=== PATIENT | female | born 1970 | race Caucasian/White ===

== ENCOUNTER 2019-10-23 09:32 | Observation (INO) ==
[2019-10-23] MEDS ORDERED: ACETAMINOPHEN 325 MG TABLET PO PRN (10:36)
[2019-10-23] MEDS ORDERED: MELATONIN 3 MG TABLET PO PRN (10:36)
[2019-10-23] MEDS ORDERED: POLYETHYLENE GLYCOL 3350 17 GM PACKET PO PRN (10:36)
[2019-10-23] MEDS ORDERED: HYDROmorphone 0.5 MG/0.5 ML SYRINGE IV PRN (10:36)
[2019-10-23] MEDS ORDERED: MAGNESIUM SULFATE 2 GM/50 ML BAG IV PRN (10:36)
[2019-10-23] MEDS ORDERED: BISACODYL 10 MG SUPP.RECT PR PRN (10:36)
[2019-10-23] MEDS ORDERED: ONDANSETRON 4 MG ODT TABLET SL PRN (10:36)
[2019-10-23] MEDS ORDERED: ACETAMINOPHEN 650 MG/65 ML BOTTLE IV PRN (10:36)
[2019-10-23] MEDS ORDERED: POTASSIUM CHLORIDE 20 MEQ PACKET PO PRN (10:36)
--- NOTE | 2019-10-23 10:39 | Internal Med History&Physical ---
HPI History of Present Illness Patient information: Note initiated : 10/23/19 at 10:38 am Service Date, if different from initiated Date: [] Patient: Caridad Rowe a 49 y/o F admitted on 10/23/19 for Intractable nausea/vomiting, ischemic colitis. Chief Complaint: [] History of present illness: Ms. Rowe is a 49 year old F with a history of hypertension/migraine who presented to the ER yesterday with symptoms of lightheadedness/abdominal pain/bloody bowels. Initial blood pressures were found to be 80/50. She is noted to have significant amount of bloody bowels over the course of few hours and was diagnosed with ischemic colitis. After initial management ER patient clinically improved. GI was consulted advised discharge with follow-up outpatient in the clinic. Repeat hemoglobin at 13.5 following crystalloid bolus. Patient was discharged with advice to follow-up with GI. Today during the evaluation at GI clinic she was noted to be extremely nauseous and was unable to undergo a colon prep for further evaluation of ischemic colitis. Subsequently hospitalist service was requested for admission to facilitate management of symptoms and colon prep and subsequent colonoscopy. At the time of my evaluation patient is accompanied with family member. She is in significant distress due to her migraine flare. She endorses to photophobia. She endorses that her symptoms are usually controlled with Excedrin/acetaminophen and NSAIDs and has used Imitrex in the past. She however denies significant abdominal pain or associated shaking chills, fever, bloody stool. She continues to be nauseous limiting GoLYTELY prep intake. She denies fever, chills, sick contacts. Review of systems 10 point review system was attempted and is negative except for ones discussed above PFSH PFSH All Active Problems (Updated 10/23/19 @ 11:17 by Momo Edwards DO) History of anemia (Chronic) GERD (gastroesophageal reflux disease) (Chronic) Headache, chronic migraine without aura (Chronic) Hypertension, essential (Chronic) Abdominal pain (Acute) GI bleed (Acute) Syncope (Acute) Medical History (Updated 10/23/19 @ 11:17 by Momo Edwards DO) GERD (gastroesophageal reflux disease) (Chronic) GI bleed (Acute) Headache, chronic migraine without aura (Chronic) vs chronic headache syndrome History of anemia (Chronic) Hypertension, essential (Chronic) Syncope (Acute) Surgical History (Updated 10/23/19 @ 11:19 by Momo Edwards DO) History of breast surgery (Acute) For cysts History of hysterectomy (Acute) History of ovarian cystectomy (Acute) Social History smoking status: Never smoker alcohol intake frequency: does not drink substance use type: does not use MEDS/ALLERGIES Home Medications and Allergies Home Medications Medication Instructions Recorded Confirmed Type cephalexin 250 mg capsule 250 mg PO QDAY cap 10/22/19 10/23/19 History losartan 100 1 tab PO QDAY 10/22/19 10/23/19 History mg-hydrochlorothiazide 25 mg tablet omeprazole 20 mg capsule,delayed 20 mg PO QDAY 10/22/19 10/23/19 History release promethazine 25 mg [place] Q6H PRN #12 each 10/22/19 10/23/19 Rx rosuvastatin 10 mg tablet 10 mg PO QDAY 10/22/19 10/23/19 History Allergies Allergy/AdvReac Type Severity Reaction Status Date / Time No Known Drug Allergies Allergy Verified 10/22/19 14:12 EXAM Constitutional Vitals: Temp 97.3 F 10/23/19 09:57 Very anxious, complains of photophobia Hypertensive Head normocephalic Oral cavity moist No ear nose discharge Eye movement symmetrical Neck supple no lymphadenopathy S1-S2 regular Nonlabored breathing Nondistended but tender abdomen on palpation Lower extremity no cyanosis clubbing or joint swelling Skin no suspicious lesion Psych anxious but alert cooperative Neuro normal higher function A/P Narrative A/P Narrative: * Acute ischemic colitis. Currently nontoxic. White count 10.8. Undergoing colon prep. GI on board. * Abdominal pain initiate as needed opioids * Acute migraine start Imitrex/acetaminophen and as needed opioids * History of hypertension restart home medications * History of hyperlipidemia start home dose statin * GERD continue PPI * Prophylaxis early ambulation Plan * Observation admission * GI consult * Migraine management * Colonoscopy per GI * Abdominal imaging if worsening symptoms or toxemia * Pre-existing medical condition management home meds Time Spent With Patient Time: Total time spent is greater than 50% in coordination of care (as documented) at patient's floor/unit and/or counseling patient:
[2019-10-23] MEDS ORDERED: ONDANSETRON 4 MG/2 ML VIAL IV PRN (10:58)
[2019-10-23] MEDS ORDERED: PROMETHAZINE 25 MG/ML VIAL IV PRN (10:59)
[2019-10-23] MEDS ORDERED: MAGNESIUM CITRATE 300 ML ORAL.SOL PO SCH (11:00)
[2019-10-23] MEDS ORDERED: PEG 3350/NA SULF,BICARB,CL/KCL 4,000 ML ORAL.SOL PO SCH (11:00)
[2019-10-23] MEDS ORDERED: BISACODYL 5 MG TABLET PO SCH (11:00)
[2019-10-23] MEDS ORDERED: SENNOSIDES 8.8 MG/5 ML ML PT SCH (11:00)
[2019-10-23] MEDS ORDERED: BETHANECHOL 10 MG TABLET PO SCH (11:00)
[2019-10-23] MEDS ORDERED: SUMAtriptan SUCCINATE 6 MG/0.5 ML VIAL SQ ONE (11:55)
[2019-10-23 12:01] LABS: Basophils # (Auto) 0.03 K/mcL (0.00-0.30); Basophils % (Auto) 0.3 % (0.0-2.0); Eosinophils # (Auto) 0.04 K/mcL (0.00-0.70); Eosinophils % (Auto) 0.4 % (0.0-7.0); Granulocytes % (Auto) 80.8 % (38.0-78.0); Hematocrit 44.1 % (34.1-44.9); Hemoglobin 14.6 g/dL (11.2-15.7); Lymphocytes # (Auto) 1.33 K/mcL (1.50-4.80); Lymphocytes % (Auto) 12.3 % (15.5-49.0); Mean Cell Volume 89.3 fL (80.0-100.0); Mean Corpuscular HGB Conc 33.1 g/dL (31.0-36.0); Mean Platelet Volume 12.3 fL (7.4-10.4); Monocytes # (Auto) 0.67 K/mcL (0.10-0.90); Monocytes % (Auto) 6.2 % (1.0-12.0); Platelet Count 223 K/mcL (140-440); RBC 4.94 M/mcL (3.59-5.38); Red Cell Distribution Width 12.5 % (11.5-14.5); WBC 10.8 K/mcL (4.50-11.00)
[2019-10-23] MEDS: 0.9 % SODIUM CHLORIDE 1,000 ML IV SCH ×2 (12:13→22:48)
[2019-10-23 12:20] LABS: Bilirubin,Direct < 0.2 mg/dL (0.0-0.3); Chloride 99 mmol/L (96-108)
[2019-10-23 12:24] LABS: ALT/SGPT 27 U/l (0-40); AST/SGOT 21 U/l (0-37); Albumin 4.1 gm/dL (3.2-5.2); Albumin/Globulin Ratio 1.4 (1.0-2.3); Alkaline Phosphatase 99 U/L (39-117); Bilirubin,Total 0.4 mg/dL (0.0-1.0); Blood Urea Nitrogen 19 mg/dl (6-20); Carbon Dioxide 21 mmol/L (22-30); Glomerular Filtration Rate 85; Glucose 97 mg/dL (70-105); Lactate Dehydrogenase 204 U/L (94-250); Phosphorous 3.3 mg/dL (2.7-4.5); Triglycerides 59 mg/dl (<150); Uric Acid 4.1 mg/dL (2.5-8.0)
[2019-10-23] MEDS: 0.9 % SODIUM CHLORIDE 10 ML SYRINGE IV SCH ×2 (16:50→20:43)
[2019-10-23] MEDS: ONDANSETRON 4 MG/2 ML VIAL IV PRN (18:51)
[2019-10-23] MEDS: PROMETHAZINE 25 MG/ML VIAL IV PRN (19:56)
[2019-10-23] MEDS: DOCUSATE SODIUM 100 MG CAPSULE PO SCH (20:42)
[2019-10-23] MEDS ORDERED: SENNOSIDES/DOCUSATE SODIUM 1 TAB TABLET PO SCH (21:00)
[2019-10-24] MEDS: ONDANSETRON 4 MG/2 ML VIAL IV PRN (01:56)
[2019-10-24] MEDS: 0.9 % SODIUM CHLORIDE 10 ML SYRINGE IV SCH ×2 (05:02→12:01)
[2019-10-24] MEDS: 0.9 % SODIUM CHLORIDE 1,000 ML IV SCH (06:34)
[2019-10-24 07:03] LABS: Hematocrit 38.6 % (34.1-44.9); Hemoglobin 12.9 g/dL (11.2-15.7); Mean Cell Volume 88.1 fL (80.0-100.0); Mean Corpuscular HGB Conc 33.4 g/dL (31.0-36.0); Mean Platelet Volume 12.1 fL (7.4-10.4); Platelet Count 227 K/mcL (140-440); RBC 4.38 M/mcL (3.59-5.38); Red Cell Distribution Width 12.5 % (11.5-14.5); WBC 11.2 K/mcL (4.50-11.00)
[2019-10-24] MEDS: DOCUSATE SODIUM 100 MG CAPSULE PO SCH (07:07)
[2019-10-24 07:19] LABS: ALT/SGPT 27 U/l (0-40); AST/SGOT 21 U/l (0-37); Albumin 3.6 gm/dL (3.2-5.2); Albumin/Globulin Ratio 1.4 (1.0-2.3); Alkaline Phosphatase 85 U/L (39-117); Bilirubin,Direct < 0.2 mg/dL (0.0-0.3); Bilirubin,Total 0.4 mg/dL (0.0-1.0); Blood Urea Nitrogen 15 mg/dl (6-20); Calcium 9.1 mg/dl (8.6-10.4); Carbon Dioxide 24 mmol/L (22-30); Chloride 101 mmol/L (96-108); Globulin 2.6 gm/dL (2.2-3.7); Glomerular Filtration Rate 85; Glucose 88 mg/dL (70-105); Lactate Dehydrogenase 177 U/L (94-250); Phosphorous 2.4 mg/dL (2.7-4.5); Triglycerides 61 mg/dl (<150); Uric Acid 4.5 mg/dL (2.5-8.0)
[2019-10-24] MEDS ORDERED: KETAMINE HCL 50 MG/ML ML IV PRN (08:36)
[2019-10-24] MEDS ORDERED: MIDAZOLAM 2 MG/2 ML VIAL IV SCH (08:45)
[2019-10-24] MEDS ORDERED: PROPOFOL 200 MG/20 ML VIAL IV SCH (08:45)
[2019-10-24] MEDS ORDERED: MULTIVIT,THER IRON,CA,FA & MIN 1 TABLET PO SCH (09:00)
[2019-10-24] MEDS ORDERED: PROMETHAZINE 25 MG SUPP.RECT PR PRN (09:56)
[2019-10-24] MEDS ORDERED: FLU VACC QS2020-21(6MOS UP)/PF 60 MCG/0.5 ML SYRINGE IM ONE (10:00)
[2019-10-24] MEDS ORDERED: LOSARTAN 50 MG TABLET PO ONE (10:00)
[2019-10-24] MEDS ORDERED: HYDROCHLOROTHIAZIDE 25 MG TABLET PT ONE (10:02)
[2019-10-24] MEDS ORDERED: HYDROCHLOROTHIAZIDE 25 MG TABLET PO ONE (10:02)
[2019-10-24 10:39] LABS: Lymphocytes % 22 % (15-49); Monocytes % (Manual) 7 % (1-12); Platelet Estimate NORMAL (NORMAL); RBC Morphology NORMAL (NORMAL); Segmented Neutrophils % 71 % (38-78)
[2019-10-24] MEDS: PROMETHAZINE 25 MG/ML VIAL IV PRN (10:47)
--- NOTE | 2019-10-24 14:35 | Discharge Summary ---
Discharge Provider Provider Patient information: Note initiated : 10/24/19 at 2:33 pm Service Date, if different from initiated Date: [] Patient: Caridad Rowe a 49 y/o F admitted on 10/23/19 for Intractable nausea/vomiting, ischemic colitis. Chief Complaint: Discharge diagnosis * Acute ischemic colitis. Status post colonoscopy. GI recommends discharging with outpatient GI follow-up and advancing diet as tolerated now on liquid diet. Stable postop. Discharge instructions as below * Abdominal pain resolved * Acute migraine flare-clinically improved * History of hypertension continue home medications * History of hyperlipidemia continue home dose statin * GERD continue PPI Brief hospital course Ms. Rowe is a 49 year old F with a history of hypertension/migraine who presented to the ER yesterday with symptoms of lightheadedness/abdominal pain/bloody bowels. Initial blood pressures were found to be 80/50. She is noted to have significant amount of bloody bowels over the course of few hours and was diagnosed with ischemic colitis. After initial management ER patient clinically improved. GI was consulted advised discharge with follow-up outpatient in the clinic. Repeat hemoglobin at 13.5 following crystalloid bolus. Patient was discharged with advice to follow-up with GI. Today during the evaluation at GI clinic she was noted to be extremely nauseous and was unable to undergo a colon prep for further evaluation of ischemic colitis. Subsequently hospitalist service was requested for admission to facilitate management of symptoms and colon prep and subsequent colonoscopy. At the time of my evaluation patient is accompanied with family member. She is in significant distress due to her migraine flare. She endorses to photophobia. She endorses that her symptoms are usually controlled with Excedrin/acetaminophen and NSAIDs and has used Imitrex in the past. She however denies significant abdominal pain or associated shaking chills, fever, bloody stool. She continues to be nauseous limiting GoLYTELY prep intake. She denies fever, chills, sick contacts. 10/23-patient doing well post colonoscopy. GI recommends discharging on clear liquid advance as tolerated. Ischemic colitis noted on colonoscopy. Patient tolerated procedure well. Stable hemodynamics. Discharging advised to follow- up with GI clinic Charis Josue Date of admission: 10/23/19 09:57 Discharge date: 10/24/19 Primary care physician: James Galan Discharge Meds Discharge Medications Home Medications cephalexin 250 mg capsule 250 mg PO QDAY cap 10/22/19 [History Confirmed 10/23/19 Last Taken 10/22/19 06:30] losartan 100 mg-hydrochlorothiazide 25 mg tablet 1 tab PO QDAY 10/22/19 [History Confirmed 10/23/19 Last Taken 10/22/19 06:30] omeprazole 20 mg capsule,delayed release 20 mg PO QDAY 10/22/19 [History Co nfirmed 10/23/19 Last Taken 10/22/19 06:30] promethazine 25 mg MN Q6H PRN #12 each 10/22/19 [Rx Confirmed 10/23/19 Last Taken 10/22/19 23:00] rosuvastatin 10 mg tablet 10 mg PO QDAY 10/22/19 [History Confirmed 10/23/19 Last Taken 10/22/19 19:00] COURSE Hospital Course Hospital course: . Discharge diagnosis: . Time Spent with Patient Time attestation: Total time spent providing and/or coordinating discharge serv ices: EXAM Constitutional Vitals: Temp Pulse Resp BP Pulse Ox 98.9 F 73 16 139/87 91 10/24/19 13:44 10/24/19 13:44 10/24/19 13:44 10/24/19 13:44 10/24/19 13:44 Discharge Data Data Completed and Pending Labs on day of discharge: Labs from last 24 hours 10/24/19 10/24/19 05:35 05:35 WBC 11.2 H RBC 4.38 Hgb 12.9 Hct 38.6 MCV 88.1 MCH 29.5 MCHC 33.4 RDW 12.5 Plt Count 227 MPV 12.1 H Total Counted 100 Seg Neutrophils % 71 Band Neutrophils % Not Reportable Lymphocytes % 22 Monocytes % (Manual) 7 Platelet Estimate Normal RBC Morphology Normal Sodium 137 Potassium 3.4 Chloride 101 Carbon Dioxide 24 Anion Gap 12.0 BUN 15 Creatinine 0.8 GFR Calculation 85 Glucose 88 Uric Acid 4.5 Calcium 9.1 Phosphorus 2.4 L Magnesium 2.3 Total Bilirubin 0.4 Direct Bilirubin < 0.2 GGT 60 H AST 21 ALT 27 Alkaline Phosphatase 85 Lactate Dehydrogenase 177 Total Protein 6.2 Albumin 3.6 Globulin 2.6 Albumin/Globulin Ratio 1.4 Triglycerides 61 Discharge Plan Patient/Caregiver Discharge Instructions Activity: increase activity as tolerated Diet: Regular Diet and Full Liquid Instructions: Colonoscopy (DC) Activity Restrictions/Additional Instructions: Start with liquid diet and advance as per GI recommendation to regular Follow-up outpatient clinic Charis Josue, GI as advised by GI Prescriptions: Continued omeprazole 20 mg capsule,delayed release(DR/EC) 20 mg PO QDAY RF: 0 losartan-hydrochlorothiazide 100-25 mg tablet 1 tab PO QDAY RF: 0 cephalexin 250 mg capsule 250 mg PO QDAY RF: 0 rosuvastatin [Crestor] 10 mg tablet 10 mg PO QDAY RF: 0 promethazine 25 mg suppository 25 mg MN Q6H PRN (Reason: nausea and vomiting) Qty: 12 RF: 1 Follow Up Plan Follow up with: Charis Jsoue ARNP [Nurse Practitioner] - 10/29/19 3:15 pm Patient Disposition: Home, Self-Care Rehab Potential: Fair I certify that the patient requires SNF services: No Overall status at discharge: patient is progressing back to baseline Discharge Orders: Discharge Order (Routine); Ordered 10/24/19 Ordered By: Aureliano Hernandez
[2019-10-25] MEDS ORDERED: OMEPRAZOLE 20 MG CAPSULE PO SCH (07:30)
--- NOTE | 2019-10-25 08:58 | Colonoscopy Procedure Note ---
Colonoscopy Procedure Notes Procedure Information Patient information: Note initiated : 10/25/19 at 8:57 am Service Date: 10/24/19 Patient: Caridad Rowe 49 y/o F admitted on 10/23/19 for Intractable nausea/vomiting, ischemic colitis. Pre-op diagnosis general: Diarrhea. Abdominal pain. Hematochezia. Post-op diagnosis general: Ischemic colitis. Procedure: Colonoscopy with Bx Procedure narrative: The procedure, alternatives and risks were discussed with the patient and the patient's questions were answered. With endoscopist- administered intravenous sedation, the Olympus colonoscope was introduced into the rectum and advanced to the cecum. Ileocecal valve was identified, intubated, and several centimeters of the terminal ileum were examined and appeared normal. Ischemic colitis was seen the descending colon; this was biopsied. The scope was withdrawn. Assessment: Ischemic colitis. Will proceed with Ct angiography to check for th rombus.
[2019-10-25] MEDS ORDERED: ATORVASTATIN 20 MG TABLET PO SCH (09:00)
[2019-10-25] MEDS ORDERED: LOSARTAN 50 MG TABLET PO SCH (09:00)
[2019-10-25] MEDS ORDERED: HYDROCHLOROTHIAZIDE 25 MG TABLET PO SCH (09:00)
--- NOTE | 2019-10-25 14:07 | Surgical Pathology Report ---
HISTOLOGY SPECIMEN MICROSCOPIC DIAGNOSIS COLON, DESCENDING, BIOPSY: -- ERODED COLONIC MUCOSA WITH CRYPT DROPOUT, SUBMUCOSAL FIBROSIS, HEMORRHAGE AND MODERATE ACUTE AND CHRONIC INFLAMMATION, CONSISTENT WITH ISCHEMIC COLITIS. -- NO GRANULOMAS, DYSPLASIA OR MALIGNANCY IDENTIFIED. (DMT:sln) CLINICAL HISTORY Diarrhea; abdominal pain. PROCEDURAL IMPRESSION Ischemic colitis. GROSS DESCRIPTION Received in formalin labeled descending colon biopsy, are multiple parra tissue fragments from less than 0.1 to 0.4 cm. Entirely submitted in one cassette. (SCB:adj) Electronically Signed by: Lukas Haddad M.D.
== END 2019-10-24 16:50 | disposition home or self-care (01) ==
LOC: MEDSUR
PROVIDERS: ADMIT Internal Medicine; ATTEND Internal Medicine